=== PATIENT | male | born 1975 | race African-American/Black ===

== ENCOUNTER 2019-06-18 16:25 | Emergency (ER) | payer OTHER, SELFPAY ==
--- NOTE | 2019-06-18 17:03 | RAD ---
RADIOGRAPH CHEST 2 VIEWS: DATE: 06/18/2019 HISTORY: 43-year-old male with cough and chest congestion FINDINGS: There is no airspace density, pulmonary edema, pleural effusion, pneumothorax, or cardiomegaly. IMPRESSION: No acute cardiopulmonary findings.
== END 2019-06-18 17:20 | disposition home or self-care (01) ==
LOC: SCSER 16:25
DX: J20.9 Acute bronchitis, unspecified (principal); K21.9 Gastro-esophageal reflux disease without esophagitis; F17.290 Nicotine dependence, other tobacco product, uncomplicated; Z79.899 Other long term (current) drug therapy
CPT/HCPCS: 71046; 99283